=== PATIENT | female | born 1980 | race Caucasian/White ===

== ENCOUNTER → 2019-06-17 07:21 | Outpatient (CLI) | payer BC | END | disposition home or self-care (01) | LOC: D.OPS 07:21 | PROVIDERS: ATTEND Surgery | DX: E66.01 Morbid (severe) obesity due to excess calories (principal) ==

== ENCOUNTER 2019-06-23 05:24 | Day surgery (SDC) | payer BC ==
[~2019-06-23] VITALS: Ht 170.2 cm; Wt 130.5 kg
[2019-06-23 06:02] LABS: HEMATOCRIT 36.7 % (36.0-48.0); HEMOGLOBIN 12.4 g/dL (12-16); MCH 29.7 pg (26.0-34.0); MCHC 33.8 g/dL (31.0-37.0); MEAN PLATELET VOLUME 9.5 fL (7.4-10.4); RBC 4.17 10x6/uL (4.00-5.40); RDW 12.7 % (11.5-14.5); WBC 5.9 10x3/uL (4.8-10.8)
[2019-06-23] MEDS ORDERED: NORVASC5 MG PO (06:32)
[2019-06-23] MEDS ORDERED: CELEXA40 MG PO (06:33)
[2019-06-23] MEDS ORDERED: LAMICTAL100 MG PO (06:33)
[2019-06-23 06:38] VITALS: BP 148/84; Ht 170.2 cm; Wt 130.5 kg
--- NOTE | 2019-06-23 09:23 | NUR ---
0901 VSS. IV DC'D. CATHETER TIP INTACT. NO BLEEDING AT SITE AFTER HOLDING PRESSURE. NO SWELLING AT IV SITE. BANDAID APPLIED.
== END 2019-06-23 09:15 | disposition home or self-care (01) ==
LOC: D.OPS 05:24
PROVIDERS: Anesthesiology; ATTEND Surgery
DX: E66.01 Morbid (severe) obesity due to excess calories (principal); Z68.41 Body mass index [BMI] 40.0-44.9, adult; K21.9 Gastro-esophageal reflux disease without esophagitis; K20.9 Esophagitis, unspecified; K44.9 Diaphragmatic hernia without obstruction or gangrene; I10 Essential (primary) hypertension; Z71.3 Dietary counseling and surveillance

== ENCOUNTER → 2019-09-29 11:49 | Outpatient (CLI) | payer BC ==
[2019-06-23 06:38] VITALS: Wt 131.1 kg
[~2019-09-29 11:49] MED LIST: CELEXA40 MG PO; LAMICTAL100 MG PO; NEXIUM20 MG PO; NORVASC5 MG PO
== END | disposition home or self-care (01) ==
LOC: D.LABREF 11:49
PROVIDERS: ATTEND Surgery
DX: Z11.59 Encounter for screening for other viral diseases (principal)

== ENCOUNTER 2019-09-30 11:25 | Inpatient (IN) | payer OTHER, BC ==
[2019-09-29 14:13] LABS: HEMOGLOBIN 13.1 g/dL (12-16); MCH 29.4 pg (26.0-34.0); MCHC 33.6 g/dL (31.0-37.0); MCV 87.4 fL (80.0-100.0); RBC 4.46 10x6/uL (4.00-5.40); RDW 12.4 % (11.5-14.5); WBC 7.1 10x3/uL (4.8-10.8)
[~2019-09-30] VITALS: Ht 170.2 cm; Wt 130.5 kg
[2019-10-01 07:59] VITALS: BP 131/71; BMI 45.4
[2019-10-01 11:15] VITALS: BP 156/90
--- NOTE | 2019-10-01 11:16 | NUR ---
ARRIVED TO ROOM 2222 VIA STRETCHER WITH EYES CLOSED EASILY TO AROUSED WHEN NAME IS CALLED. HAS 4 LAP SITES NOTED TO ABD. NO C/O NOTED OR VOICED. ASSESSMENT COMPLETED. C/L IN REACH AT BEDSIDE.
[2019-10-01 14:45] VITALS: Ht 170.2 cm; Wt 130.5 kg
--- NOTE | 2019-10-01 16:00 | NUR ---
PT AMBULATED AROUND NURSING STATION 3 TIMES WITH STEADY GAIT. HUBSAND AND NURSE AT SIDE. C/L IN REACH AT BEDSIDE.
--- NOTE | 2019-10-01 18:00 | NUR ---
I have reviewed this patient and I concur with the Shift Assessment completed by the Licensed Practical Nurse today this shift.
[2019-10-01 20:00] VITALS: BP 133/82
--- NOTE | 2019-10-01 20:11 | NUR ---
PATIENT LYING IN BED WITH SPOUSE AT BEDSIDE, PT WAS UP TO RESTROOM AND STATED SHE BEGAN TO GET NAUSEOUS, ADMINISTERED ZOFRAN WITH PT SCHEDULED MEDS. PT HAS 6 LAPSITES DRY AND INTACT, HAS DRIED BLOOD TO SITES. PT STATES SHE IS SORE BUT NOT TOO UNCOMFORTABLE. PT AMBULATED 4 TIMES AROUND NURSING STATION BEFORE SHIFT CHANGE. INQUIRED ABOUT HER BP MEDICATION AND ADVISED THAT MEDICATION HAS BEEN HELD FOR NOW. NO OTHER NEEDS VOICED, CL IN REACH CONTINUE WITH PLAN OF CARE
--- NOTE | 2019-10-01 21:50 | NUR ---
PT UP WALKING AROUND NURSING UNIT WITH SPOUSE, NO S/SX OF DISTRESS, NO NEEDS VOICED, PT MADE 2 ROUNDS, CONTINUE WITH PLAN OF CARE
--- NOTE | 2019-10-01 22:28 | NUR ---
AFTER AMBULATING AROUND NURSING STATION, PT BECAME NAUSEOUS, TOO EARLY FOR MYRNA, GAVE PT SOME COLD WASH CLOTHES AND ASKED PT TO NOT OVER DO IT. PT STATED "I NEVER DO ANYTHING HALF ASSED" INFORMED PT THAT THIS TIME SHE WILL NEED TO. SPOUSE AT BEDSIDE. NO OTHER NEEDS AT THIS TIME, HUNG SCHEDULED ABX, CONTINUE WITH PLAN OF CARE
--- NOTE | 2019-10-01 23:39 | NUR ---
RECIEVED UP IN BED WITH EYE OPEN AND SPOUSE AT BEDSIDE. ALERT AND ORIENTED X4. UP AD MARLIN. SURGICAL SITES TO ABDOMEN. IV TO LT FA WITH LR AT 150CC/HR. DENIES ANY NEEDS AT THIS TIME.
[2019-10-02] VITALS: BP 150/91
[2019-10-02 04:00] VITALS: BP 141/83
[2019-10-02 06:35] LABS: BASOPHILS 0 % (0-2); EOSINOPHILS 0 % (0-7); IMMATURE GRANULOCYTES 0.3 % (0-5); LYMPHOCYTES 9.3 % (15-50); MCH 30.7 pg (26.0-34.0); MCHC 34.2 g/dL (31.0-37.0); MCV 89.8 fL (80.0-100.0); MEAN PLATELET VOLUME 10.7 fL (7.4-10.4); MONOCYTES 5.1 % (2-11); NEUTROPHILS 85.3 % (40-80); PLATELET COUNT 251 10x3/uL (130-400); RBC 4.23 10x6/uL (4.00-5.40); RDW 12.8 % (11.5-14.5); WBC 10.8 10x3/uL (4.8-10.8)
[2019-10-02 07:11] LABS: ALKALINE PHOSPHATASE 72 U/L (30-120); ALT (SGPT) 36 U/L (10-68); BILIRUBIN - TOTAL 0.28 mg/dL (0.2-1.3); CALC OSMOLALITY 267 mosm/kg (275-300); CALCIUM 8.5 mg/dL (8.5-10.1); CHLORIDE - SERUM 101 mmol/L (98-107); CREATININE - SERUM 0.7 mg/dL (0.6-1.3); GLUCOSE 100 mg/dL (74-106); POTASSIUM - SERUM 4.7 mmol/L (3.5-5.1); SODIUM 135 mmol/L (136-145); UREA NITROGEN 8 mg/dL (7-18); eGFR NON AFRICAN AMERICAN > 90 mL/min (90-120)
--- NOTE | 2019-10-02 07:31 | NUR ---
ALERT AND ORIENTED. LUNGS CLEAR BILATERALLY .HEART SOUNDS S1 AND S2 HEARD IN ALL [place]. BOWEL SOUNDS ACTIVE X 4. LAP SITES X 6 TO ABD C/D/I. IV TO LFA PATENT WITHOUT REDNESS. DENIES NEEDS. BED LOW. CALL MDCONALD ANDPERSONAL ITEMS IN REACH. WILL CONTINUE TO MONITOR.
[2019-10-02] MEDS ORDERED: ZOFRAN4 MG PO (08:49)
[2019-10-02] MEDS ORDERED: HYDROCODON-ACE1 EAC7 PO (08:49)
[2019-10-02 09:32] VITALS: BP 123/64
--- NOTE | 2019-10-02 10:41 | NUR ---
DISCHARGE EDUCATION PROVIDED BOTH WRITTEN AND VERBAL. VERBALIZED UNDERSTANDING. DENIES FURTHER QUESTIONS. IV REMOVED FROM LFA WITH TIP INTACT. PATIENT DC HOME WITH WITH ALL BELONGINGS.
== END 2019-10-02 10:42 | disposition home or self-care (01) | DRG 621 ==
LOC: D.MS 10-01 07:19 → D.SDCHOLD 10-01 07:19 → D.MS 10-01 10:38
PROVIDERS: Anesthesiology; ADMIT Surgery; ATTEND Surgery
PROC: 0DB64Z3 Excision of Stomach, Percutaneous Endoscopic Approach, Vertical (ICD-10-PCS; principal; 2019-10-01 09:00)
DX: E66.01 Morbid (severe) obesity due to excess calories (principal); Z68.41 Body mass index [BMI] 40.0-44.9, adult; I10 Essential (primary) hypertension; K21.9 Gastro-esophageal reflux disease without esophagitis

== ENCOUNTER 2020-01-07 08:02 | Emergency (ER) | payer OTHER ==
[~2020-01-07] VITALS: Ht 170.2 cm; Wt 106.8 kg
[~2020-01-07 08:02] MED LIST changes: +HYDROCODON-ACE1 EAC7 PO; +ZOFRAN4 MG PO
[2020-01-07 08:09] VITALS: Ht 170.2 cm; Wt 106.8 kg
[2020-01-07 09:07] LABS: BASOPHILS 0.2 % (0-2); EOSINOPHILS 0.6 % (0-7); HEMATOCRIT 38.9 % (36.0-48.0); HEMOGLOBIN 12.9 g/dL (12-16); IMMATURE GRANULOCYTES 0.5 % (0-5); LYMPHOCYTES 11.7 % (15-50); MCH 29.9 pg (26.0-34.0); MCHC 33.2 g/dL (31.0-37.0); MEAN PLATELET VOLUME 10.5 fL (7.4-10.4); MONOCYTES 3.8 % (2-11); NEUTROPHILS 83.2 % (40-80); PLATELET COUNT 230 10x3/uL (130-400); RBC 4.32 10x6/uL (4.00-5.40); RDW 12.7 % (11.5-14.5); WBC 13.2 10x3/uL (4.8-10.8)
[2020-01-07 09:16] LABS: CALC OSMOLALITY 277 mosm/kg (275-300); CARBON DIOXIDE 28.8 mmol/L (21.0-32.0); CHLORIDE - SERUM 102 mmol/L (98-107); CREATININE - SERUM 0.7 mg/dL (0.6-1.3); GLUCOSE 114 mg/dL (74-106); HCG SERUM NEGATIVE (NEGATIVE); POTASSIUM - SERUM 3.7 mmol/L (3.5-5.1); SODIUM 139 mmol/L (136-145); UREA NITROGEN 11 mg/dL (7-18); eGFR NON AFRICAN AMERICAN > 90 mL/min (90-120)
[2020-01-07 09:24] LABS: ALBUMIN 3.8 g/dL (3.4-5.0); ALKALINE PHOSPHATASE 63 U/L (30-120); ALT (SGPT) 33 U/L (10-68); BILIRUBIN - TOTAL 0.34 mg/dL (0.2-1.3); PROTEIN - SERUM 6.8 g/dL (6.4-8.2)
[2020-01-07 09:26] LABS: APTT 24.4 SECONDS (22.8-39.4); INR 1.02 (0.85-1.17); PROTIME 13.3 SECONDS (11.6-15.0)
[2020-01-07] MEDS ORDERED: IBUPROFEN800 MG PO (11:19)
[2020-01-07] MEDS ORDERED: CYCLOBENZAPRINE10 MG PO (11:19)
[2020-01-07] MEDS ORDERED: ULTRAM50 MG PO ×2 (11:19→11:22)
[2020-01-07] MEDS ORDERED: ACETAMINOPHEN500 M1 PO (11:19)
[2020-01-07 11:39] LABS: KETONE MODERATE mg/dL (NEGATIVE); NITRITE NEGATIVE (NEGATIVE); UROBILINOGEN NORMAL mg/dL (< 2)
[2020-01-07 11:40] LABS: BILIRUBIN NEGATIVE (NEGATIVE)
[2020-01-07 11:42] LABS: BACTERIA MODERATE HPF (NONE SEEN); EPITHELIAL CELLS 0-5 /hpf (0-5); WHITE CELLS - URINE 0-5 HPF (0-4)
[2020-01-07 12:52] VITALS: BP 125/87
== END 2020-01-07 12:54 | disposition home or self-care (01) ==
LOC: D.ER 08:02
PROVIDERS: Family Medicine
DX: M79.18 Myalgia, other site (principal); M79.604 Pain in right leg; T14.8XXA Other injury of unspecified body region, initial encounter; S99.911A Unspecified injury of right ankle, initial encounter; S93.401A Sprain of unspecified ligament of right ankle, initial encounter; V89.2XXA Person injured in unspecified motor-vehicle accident, traffic, initial encounter; Y93.9 Activity, unspecified; Y92.9 Unspecified place or not applicable; I10 Essential (primary) hypertension; K21.9 Gastro-esophageal reflux disease without esophagitis

== ENCOUNTER → 2020-01-20 14:16 | Outpatient (CLI) | payer BC ==
[2020-01-07 08:09] VITALS: BMI 36.9
[~2020-01-20 14:16] MED LIST changes: +ACETAMINOPHEN500 M1 PO; +CYCLOBENZAPRINE10 MG PO; +IBUPROFEN800 MG PO; +ULTRAM50 MG PO
== END | disposition home or self-care (01) ==
LOC: D.MRI 14:16
PROVIDERS: ATTEND Urology
DX: S86.311A Strain of muscle(s) and tendon(s) of peroneal muscle group at lower leg level, right leg, initial encounter (principal); S93.491A Sprain of other ligament of right ankle, initial encounter